=== PATIENT | female | born 1980 | race Caucasian/White ===

== ENCOUNTER 2019-03-07 02:52 | Emergency (ER) | payer OTHER ==
[~2019-03-07] VITALS: Ht 170.2 cm; Wt 70.3 kg
[2019-03-07] MEDS ORDERED: IV NS 0.9% 1,000 ML BAG IV ONE (03:30)
[2019-03-07 03:32] LABS: CALCIUM, SERUM 8.9 mg/dL (8.5-10.1); CREATININE 0.7 mg/dL (0.6-1.3); POTASSIUM 3.6 mmol/L (3.5-5.1)
[2019-03-07 03:34] LABS: BASOPHILS # (AUTO) 0.1 /CMM (0.0-0.2); BASOPHILS % (AUTO) 1.4 % (0.0-2.0); EOSINOPHILS % (AUTO) 3.2 % (0.0-6.0); HEMATOCRIT 37 % (33-45); HEMOGLOBIN 12.5 g/dL (11.5-14.8); LYMPHOCYTES # (AUTO) 3.5 /CMM (0.8-4.8); LYMPHOCYTES % (AUTO) 42.8 % (20.0-44.0); MEAN CORPUSCULAR HGB CONC 34 g/dl (31.0-36.0); MEAN CORPUSCULAR VOLUME 94 fL (82-100); MONOCYTES # (AUTO) 0.8 /CMM (0.1-1.30); MONOCYTES % (AUTO) 10.1 % (2.0-12.0); NEUTROPHILS # (AUTO) 3.5 /CMM (1.8-8.9); NEUTROPHILS % (AUTO) 42.5 % (43.0-81.0); PLATELET COUNT (AUTO) 341 /CMM (150-450); RED BLOOD CELL COUNT(AUTO) 3.89 MIL/uL (4.0-5.2); WHITE BLOOD COUNT (AUTO) 8.2 K/uL (4.3-11.0)
[2019-03-07 03:38] LABS: APPEARANCE,URINE Clear (CLEAR); BILIRUBIN,URINE Negative (NEGATIVE); BLOOD, URINE Negative Ery/uL (NEGATIVE); COLOR,URINE Yellow (YELLOW); KETONES,URINE Negative (NEGATIVE); LEUKOCYTE ESTERASE ,URINE Negative (NEGATIVE); NITRITE, URINE Negative (NEGATIVE); PROTEIN,URINE Negative (NEGATIVE); UGLUCOSE Negative (NEGATIVE); UROBILINOGEN,URINE 0.2 EU/dL (0.2)
[2019-03-07 03:39] LABS: ALBUMIN 3.3 g/dL (3.4-5.0); BILIRUBIN,DIRECT 0.1 mg/dL (0.0-0.2); BILIRUBIN,TOTAL 0.1 mg/dL (0.2-1.0); TOTAL PROTEIN, SERUM 7.1 g/dL (6.4-8.2)
[2019-03-07 03:40] LABS: SALICYLATE 1.4 mg/dL (2.8-20.0)
--- NOTE | 2019-03-07 04:09 | NUR ---
[facility]ANT FROM [place]. TO ER BED 12. INTOXICATED. NO RESP DISTRESS NOTED. BROUGHT IN D/T FOUND WITH ALCOHOL AND INGESTED PILLS PER NEIGHBOR. PT ADMIT TO TAKING GABAPENTIN OF UNKNOWN AMOUNT. PT STATES THAT HE DID IT IN ATTEMPT TO HURT HIMSELF. ACCORDING TO PT SHE IS DEPPRESSED. EMS REPORTS THAT PT HAS A COURT TOMORROW. MD AT BEDSIDE FOR EVAL. ORDERS RECEIVED, NOTED AND CARRIED OUT. IV LINE OBTAINED ON R AC 20G. BLOOD DRAWN AND GIVEN TO LABTECH AT BEDSIDE. URINE COLLECTED VIA STRAIGHT CATH BY CHELA YOUNGBLOOD AND SENT OT LAB.
--- NOTE | 2019-03-07 04:17 | NUR ---
PT STRIPPED OFF HER CLOTHES AND PLACED IN GOWN. SITTER AT BEDSIDE FOR 1:1.
--- NOTE | 2019-03-07 06:39 | NUR ---
PT IN BED SLEEPING. BREATHING EVEN AND UNLABORED. SITTER AT BEDSIDE
--- NOTE | 2019-03-07 07:22 | NUR ---
REPORT RECEIVED FROM KARLA YORK. RESTING QUIETLY, EASILY AROUSABLE, WITH EVANGELIST JOHNSON AT BEDSIDE.
--- NOTE | 2019-03-07 10:04 | NUR ---
resting quietly, asleep but easily arousable. placed order for alcohol level recheck at 1100 per MD verbal order.
--- NOTE | 2019-03-07 12:15 | NUR ---
PT DENIES ALL SI OR HI. PT ASKING TO GO HOME. EXPLAINED PLAN OF CARE IN DETAIL, PT CONSENTS TO PLAN OF CARE.
--- NOTE | 2019-03-07 12:38 | NUR ---
CALLED ART SENIOR UI SOFTWARE ENGINEER FOR PT EVAL.
--- NOTE | 2019-03-07 12:50 | NUR ---
[facility], REQUESTED DR FRANCIS ROGER
--- NOTE | 2019-03-07 13:02 | NUR ---
ART CLOTH STRETCHER AT BEDSIDE FOR EVAL.
--- NOTE | 2019-03-07 13:19 | NUR ---
CLINICALS PROVIDED TO MICHELLE MONTESINOSSTRINGING MACHINE OPERATOR AT [facility]. ART AT BEDSIDE
--- NOTE | 2019-03-07 14:34 | NUR ---
IV removed. Catheter intact and site benign. Pressure and 4x4 applied to site. No bleeding noted.
[2019-03-07 14:43] VITALS: BP 114/66
--- NOTE | 2019-03-07 14:44 | NUR ---
Patient discharged to home in stable condition. Written and verbal after care instructions given. Patient verbalizes understanding of instruction. AMBULATORY STEADY GAIT. PT SAYS SHE WILL TRY TO SEE HER THERAPIST IN THE MORNING. PROVIDED WITH WORK NOTE. ALL BELONGINGS RETURNED TO PT.
--- NOTE | 2019-03-07 14:47 | NUR ---
CONTINUES TO DENY SI
== END 2019-03-07 14:48 | disposition home or self-care (01) ==
LOC: ER 02:52
DX: F19.10 Other psychoactive substance abuse, uncomplicated (principal); R45.851 Suicidal ideations; F10.10 Alcohol abuse, uncomplicated; R00.0 Tachycardia, unspecified; F32.9 Major depressive disorder, single episode, unspecified; F12.10 Cannabis abuse, uncomplicated; Y90.8 Blood alcohol level of 240 mg/100 ml or more; Z90.89 Acquired absence of other organs
CPT/HCPCS: 36415; 80048; 80076; 80305; 80307 ×2; 80329; 81001; 82962; 84703; 85025; 93005; 99284; G0480; J7030; 81000-TC

== ENCOUNTER 2019-03-13 22:50 | Emergency (ER) | payer OTHER ==
[~2019-03-13] VITALS: Ht 157.5 cm; Wt 67.6 kg
[2019-03-13] MEDS ORDERED: ACETAMINOPHEN ES 500 MG TABLET PO ONE (23:30)
[2019-03-13] MEDS ORDERED: IV NS 0.9% 1,000 ML BAG IV ONE (23:30)
[2019-03-13] MEDS ORDERED: ACETAMINOPHEN ES 500 MG TABLET ONE ×2 (23:30→23:44)
[2019-03-13 23:36] LABS: BASOPHILS # (AUTO) 0.1 /CMM (0.0-0.2); BASOPHILS % (AUTO) 0.9 % (0.0-2.0); HEMATOCRIT 41 % (33-45); HEMOGLOBIN 13.9 g/dL (11.5-14.8); LYMPHOCYTES # (AUTO) 3.4 /CMM (0.8-4.8); LYMPHOCYTES % (AUTO) 32.5 % (20.0-44.0); MEAN CORPUSCULAR HGB CONC 34 g/dl (31.0-36.0); MEAN CORPUSCULAR VOLUME 92 fL (82-100); MONOCYTES # (AUTO) 0.6 /CMM (0.1-1.30); MONOCYTES % (AUTO) 5.8 % (2.0-12.0); NEUTROPHILS # (AUTO) 6.3 /CMM (1.8-8.9); NEUTROPHILS % (AUTO) 59.8 % (43.0-81.0); PLATELET COUNT (AUTO) 483 /CMM (150-450); RED BLOOD CELL COUNT(AUTO) 4.45 MIL/uL (4.0-5.2); WHITE BLOOD COUNT (AUTO) 10.5 K/uL (4.3-11.0)
[2019-03-13 23:48] LABS: CALCIUM, SERUM 8.4 mg/dL (8.5-10.1); CREATININE 0.6 mg/dL (0.6-1.3); POTASSIUM 3.7 mmol/L (3.5-5.1)
--- NOTE | 2019-03-13 23:53 | NUR ---
[id number] & [employer] OFFICERS FOR SI, NO PLAN @ THIS MOMENT, DEPRESSED +ETOH -HI. C/O ABD PAIN -NAUSEA. PT AAOX3, VSS. RR EVEN & UNLABORED. CALM & COOPERATIVE. DENIES CP, SOB, DIZZINESS, N/V @ THIS TIME. SEEN & EVAL'D BY GARFIELD VELAZQUEZ. WILL CONT TO MONITOR.
[2019-03-13 23:59] LABS: ALBUMIN 3.3 g/dL (3.4-5.0); BILIRUBIN,DIRECT 0.1 mg/dL (0.0-0.2); BILIRUBIN,TOTAL 0.3 mg/dL (0.2-1.0); TOTAL PROTEIN, SERUM 7.3 g/dL (6.4-8.2)
[2019-03-14 00:04] LABS: SALICYLATE 1.2 mg/dL (2.8-20.0)
[2019-03-14 00:06] LABS: APPEARANCE,URINE CLEAR (CLEAR); BILIRUBIN,URINE NEGATIVE (NEGATIVE); BLOOD, URINE 2+ Ery/uL (NEGATIVE); COLOR,URINE YELLOW (YELLOW); KETONES,URINE NEGATIVE (NEGATIVE); LEUKOCYTE ESTERASE ,URINE NEGATIVE (NEGATIVE); NITRITE, URINE NEGATIVE (NEGATIVE); PH,URINE 6.5 (5.0-8.0); PROTEIN,URINE NEGATIVE (NEGATIVE); UGLUCOSE NEGATIVE (NEGATIVE); UROBILINOGEN,URINE 0.2 EU/dL (0.2)
[2019-03-14 00:15] LABS: BACTERIA,URINE None seen /HPF (None Seen); MUCUS,URINE Few /LPF (None Seen); RBC,URINE 0-2 /HPF (0-2); SQUAMOUS EPITHELIAL CELL,UR Moderate /HPF (None Seen)
--- NOTE | 2019-03-14 02:16 | NUR ---
DEONNA EPRP CALLED.
--- NOTE | 2019-03-14 02:55 | NUR ---
GLASS TUBE BENDER AT BEDSIDE FOR REDRAW
--- NOTE | 2019-03-14 07:49 | NUR ---
CALLED [facility] [phone] ESTHER WILL HAVE CALL US BACK.
--- NOTE | 2019-03-14 08:33 | NUR ---
RECEIVED VERBAL ORDER FROM DR YING OF ZOFRAN 4MG IV AND TYLENOL 1000MG PO. CARRIED OUT
[2019-03-14] MEDS ORDERED: ONDANSETRON HCL/PF 4 MG/2 ML VIAL ONE (08:34)
[2019-03-14] MEDS ORDERED: ACETAMINOPHEN ES 500 MG TABLET ONE (08:35)
--- NOTE | 2019-03-14 10:07 | NUR ---
SPOKE TO [facility] ([facility]),
[2019-03-14] MEDS ORDERED: ACETAMINOPHEN ES 500 MG TABLET PO ONE (10:30)
--- NOTE | 2019-03-14 10:55 | NUR ---
PT GOING TO [facility] [address] [place] ACCEPTING # FOR REPORT- [phone]
--- NOTE | 2019-03-14 11:04 | NUR ---
REPORT GIVEN TO ELEANOR OF [facility] 3
[2019-03-14] MEDS ORDERED: BENAZEPRIL HCL 10 MG TABLET ONE (12:13)
[2019-03-14] MEDS ORDERED: BENAZEPRIL HCL 10 MG TABLET PO ONE (12:30)
[2019-03-14] MEDS ORDERED: ONDANSETRON HCL/PF 4 MG/2 ML VIAL IVP ONE (12:30)
--- NOTE | 2019-03-14 12:31 | NUR ---
Patient picked up by [facility] [address] in stable condition. Patient will be transferred to [facility] Unit. Written and verbal after care instructions given. Patient verbalizes understanding of instruction.
[2019-03-14 12:33] VITALS: BP 140/85
== END 2019-03-14 12:33 | disposition short-term general hospital (02) ==
LOC: ER 22:53
DX: R45.851 Suicidal ideations (principal); F10.229 Alcohol dependence with intoxication, unspecified; F32.9 Major depressive disorder, single episode, unspecified; Y90.6 Blood alcohol level of 120-199 mg/100 ml; Z90.89 Acquired absence of other organs
CPT/HCPCS: 36415 ×2; 80048; 80076; 80305; 80307 ×3; 80329; 81001; 84703; 85025; 96374; 99285; G0480; J2405; J7030; 81000-TC

== ENCOUNTER 2019-03-18 03:55 | Emergency (ER) | payer OTHER ==
[~2019-03-18] VITALS: Ht 160 cm; Wt 68.0 kg
--- NOTE | 2019-03-18 04:00 | NUR ---
GUY MORA REPORTING OD ON SEROQUEL, NERONTIN AND WELBUTRIN FOR SUICIDE. PT APEAR VERY ANXIOUS AND UNABLE TO STAY STILL . PLACED ON A MONITOR ,
--- NOTE | 2019-03-18 04:22 | NUR ---
URINE AND BLOOD COLLECTED
[2019-03-18] MEDS ORDERED: IV NS 0.9% 1,000 ML BAG IV ONE (04:30)
[2019-03-18 04:32] LABS: BASOPHILS # (AUTO) 0.2 /CMM (0.0-0.2); BASOPHILS % (AUTO) 2.6 % (0.0-2.0); EOSINOPHILS % (AUTO) 1.7 % (0.0-6.0); HEMATOCRIT 36 % (33-45); HEMOGLOBIN 12.4 g/dL (11.5-14.8); LYMPHOCYTES # (AUTO) 3.4 /CMM (0.8-4.8); LYMPHOCYTES % (AUTO) 38.1 % (20.0-44.0); MEAN CORPUSCULAR HGB CONC 34 g/dl (31.0-36.0); MEAN CORPUSCULAR VOLUME 93 fL (82-100); MONOCYTES # (AUTO) 0.6 /CMM (0.1-1.30); MONOCYTES % (AUTO) 6.7 % (2.0-12.0); NEUTROPHILS # (AUTO) 4.5 /CMM (1.8-8.9); NEUTROPHILS % (AUTO) 50.9 % (43.0-81.0); PLATELET COUNT (AUTO) 340 /CMM (150-450); RED BLOOD CELL COUNT(AUTO) 3.89 MIL/uL (4.0-5.2); WHITE BLOOD COUNT (AUTO) 8.9 K/uL (4.3-11.0)
[2019-03-18 04:37] LABS: CALCIUM, SERUM 7.9 mg/dL (8.5-10.1); CREATININE 0.7 mg/dL (0.6-1.3); POTASSIUM 3.8 mmol/L (3.5-5.1)
[2019-03-18 04:42] LABS: ALBUMIN 3.2 g/dL (3.4-5.0); BILIRUBIN,DIRECT 0.1 mg/dL (0.0-0.2); BILIRUBIN,TOTAL 0.1 mg/dL (0.2-1.0)
[2019-03-18 04:46] LABS: APPEARANCE,URINE CLEAR (CLEAR); BILIRUBIN,URINE NEGATIVE (NEGATIVE); BLOOD, URINE NEGATIVE Ery/uL (NEGATIVE); COLOR,URINE YELLOW (YELLOW); KETONES,URINE NEGATIVE (NEGATIVE); LEUKOCYTE ESTERASE ,URINE NEGATIVE (NEGATIVE); NITRITE, URINE NEGATIVE (NEGATIVE); PROTEIN,URINE NEGATIVE (NEGATIVE); UGLUCOSE NEGATIVE (NEGATIVE); UROBILINOGEN,URINE 0.2 EU/dL (0.2)
[2019-03-18 04:50] LABS: SALICYLATE 1.3 mg/dL (2.8-20.0)
--- NOTE | 2019-03-18 05:27 | NUR ---
PAGED DEONNA PALENCIAP
--- NOTE | 2019-03-18 06:33 | NUR ---
Pt accepted to [facility]. # for report [phone]. Accepted [address] Dr Felipe . ETA [id number]
--- NOTE | 2019-03-18 06:51 | NUR ---
REPORT GIVEN TO LOGAN AT [facility].
[2019-03-18 07:08] VITALS: BP 135/94
--- NOTE | 2019-03-18 07:34 | NUR ---
report given to Gwen YORK from [facility]
--- NOTE | 2019-03-18 07:40 | NUR ---
PT WAS PICKED UP BY [facility] VIA GURNEY UNDER ACLS. ALL BELONGINGS INCLUDING EMPTY PILL BOTTLES WERE GIVEN TO THE security professionals.
== END 2019-03-18 07:44 | disposition short-term general hospital (02) ==
LOC: ER 03:55
DX: T42.6X2A Poisoning by other antiepileptic and sedative-hypnotic drugs, intentional self-harm, initial encounter (principal); R94.31 Abnormal electrocardiogram [ECG] [EKG]; Z90.89 Acquired absence of other organs; Y92.89 Other specified places as the place of occurrence of the external cause
CPT/HCPCS: 36415; 80048; 80076; 80305; 80307; 80329; 81001; 84703; 85025; 93005; 99285; G0480; J7030; 81000-TC

== ENCOUNTER 2019-07-17 14:32 | Emergency (ER) | payer OTHER ==
[~2019-07-17] VITALS: Ht 170.2 cm; Wt 74.8 kg
--- NOTE | 2019-07-17 14:50 | NUR ---
BIB ra 39 YEAR OLD FEMALE from restaurant s/p overdose on unknown substance. ALERT AND ORIENTED X2. BREATHING EVEN AND UNLABORED WITH NO DISTRESS NOTED. SKIN INTACT. WAITING TO BE SEEN BY
[2019-07-17 14:54] LABS: BASOPHILS # (AUTO) 0.1 /CMM (0.0-0.2); EOSINOPHILS % (AUTO) 1.4 % (0.0-6.0); HEMATOCRIT 40 % (33-45); HEMOGLOBIN 13.6 g/dL (11.5-14.8); LYMPHOCYTES # (AUTO) 3.7 /CMM (0.8-4.8); LYMPHOCYTES % (AUTO) 31.8 % (20.0-44.0); MEAN CORPUSCULAR HGB CONC 34 g/dl (31.0-36.0); MEAN CORPUSCULAR VOLUME 92 fL (82-100); MONOCYTES # (AUTO) 0.5 /CMM (0.1-1.30); MONOCYTES % (AUTO) 4.6 % (2.0-12.0); NEUTROPHILS % (AUTO) 61.2 % (43.0-81.0); PLATELET COUNT (AUTO) 383 /CMM (150-450); WHITE BLOOD COUNT (AUTO) 11.5 K/uL (4.3-11.0)
[2019-07-17] MEDS ORDERED: IV NS 0.9% 1,000 ML BAG IV ONE (15:00)
[2019-07-17 15:10] LABS: CALCIUM, SERUM 9.1 mg/dL (8.5-10.1); CREATININE 0.8 mg/dL (0.6-1.3); POTASSIUM 3.6 mmol/L (3.5-5.1)
[2019-07-17 15:23] LABS: ALBUMIN 3.7 g/dL (3.4-5.0); BILIRUBIN,DIRECT 0.1 mg/dL (0.0-0.2); BILIRUBIN,TOTAL 0.3 mg/dL (0.2-1.0); SALICYLATE 1.4 mg/dL (2.8-20.0); TOTAL PROTEIN, SERUM 7.5 g/dL (6.4-8.2)
--- NOTE | 2019-07-17 16:53 | NUR ---
PT ASLEEP WITH NO DISTRESS NOTED. WILL CONTINUE TO MONITOR
--- NOTE | 2019-07-17 18:37 | NUR ---
PT PULLED OUT HER IV SITE. CATH INTACT AND 4X4 PLACED ON DISLODGED SITE.
--- NOTE | 2019-07-17 19:41 | NUR ---
[facility] [phone]
[2019-07-17 20:55] LABS: APPEARANCE,URINE CLEAR (CLEAR); BILIRUBIN,URINE NEGATIVE (NEGATIVE); BLOOD, URINE NEGATIVE Ery/uL (NEGATIVE); COLOR,URINE YELLOW (YELLOW); KETONES,URINE NEGATIVE (NEGATIVE); LEUKOCYTE ESTERASE ,URINE NEGATIVE (NEGATIVE); NITRITE, URINE NEGATIVE (NEGATIVE); PROTEIN,URINE NEGATIVE (NEGATIVE); UGLUCOSE NEGATIVE (NEGATIVE); UROBILINOGEN,URINE 0.2 EU/dL (0.2)
--- NOTE | 2019-07-17 21:01 | NUR ---
PT IS AWAKE. PROVIDED WITH WATER AND TOLERATING WELL. PT AMBULATORY W/O ASSIST ON STEADY GAIT
--- NOTE | 2019-07-17 21:40 | NUR ---
CALLED [facility]. AWAITING CALL BACK FOR TO
--- NOTE | 2019-07-17 21:55 | NUR ---
DR. ESTES CALLED BACK FROM [facility] FOR DR FRANCIS AVITIA
--- NOTE | 2019-07-17 22:29 | NUR ---
Patient discharged to home in stable condition. Written and verbal after care instructions given. Patient verbalizes understanding of instruction. Pt ambulatory with a steady gait
[2019-07-17 22:31] VITALS: BP 121/85
== END 2019-07-17 22:31 | disposition home or self-care (01) ==
LOC: ER 14:34
DX: R41.82 Altered mental status, unspecified (principal); F10.129 Alcohol abuse with intoxication, unspecified; Y90.8 Blood alcohol level of 240 mg/100 ml or more; Z90.89 Acquired absence of other organs
CPT/HCPCS: 36415; 80048; 80076; 80305; 80307 ×2; 80329; 81001; 84702; 85025; 96360; 99283; G0480; J7030; 81000-TC

== ENCOUNTER 2019-09-28 13:53 | Emergency (ER) | payer OTHER ==
[~2019-09-28] VITALS: Ht 170.2 cm; Wt 74.8 kg
--- NOTE | 2019-09-28 13:54 | NUR ---
[id number] and lapd, from home, etoh, took 3 tabs of norco, pt awake, alert, not following directions, pt to bed 12, placed on monitor, vss, nad noted, pending md menchaca
[2019-09-28] MEDS ORDERED: LORAZEPAM 1 MG TABLET ONE (14:10)
[2019-09-28] MEDS ORDERED: LORAZEPAM 1 MG TABLET PO ONE (14:30)
--- NOTE | 2019-09-28 14:40 | NUR ---
per dr zendejas give pt haldol; pt uncooperative with staff.
[2019-09-28] MEDS ORDERED: HALOPERIDOL LACTATE INJ 5 MG/ML VIAL ONE (14:44)
[2019-09-28] MEDS ORDERED: HALOPERIDOL LACTATE INJ 5 MG/ML VIAL IM ONE (15:00)
[2019-09-28 15:38] LABS: BASOPHILS # (AUTO) 0.2 /CMM (0.0-0.2); BASOPHILS % (AUTO) 2.4 % (0.0-2.0); EOSINOPHILS % (AUTO) 0.2 % (0.0-6.0); HEMATOCRIT 40 % (33-45); HEMOGLOBIN 13.5 g/dL (11.5-14.8); LYMPHOCYTES % (AUTO) 34.5 % (20.0-44.0); MEAN CORPUSCULAR HGB CONC 33 g/dl (31.0-36.0); MEAN CORPUSCULAR VOLUME 89 fL (82-100); MONOCYTES # (AUTO) 0.3 /CMM (0.1-1.30); MONOCYTES % (AUTO) 3.5 % (2.0-12.0); NEUTROPHILS # (AUTO) 5.2 /CMM (1.8-8.9); NEUTROPHILS % (AUTO) 59.4 % (43.0-81.0); PLATELET COUNT (AUTO) 365 /CMM (150-450); RED BLOOD CELL COUNT(AUTO) 4.54 MIL/uL (4.0-5.2); WHITE BLOOD COUNT (AUTO) 8.8 K/uL (4.3-11.0)
[2019-09-28 15:45] LABS: CALCIUM, SERUM 8.8 mg/dL (8.5-10.1)
[2019-09-28 15:48] LABS: APPEARANCE,URINE CLEAR (CLEAR); BILIRUBIN,URINE NEGATIVE (NEGATIVE); BLOOD, URINE MODERATE Ery/uL (NEGATIVE); COLOR,URINE YELLOW (YELLOW); KETONES,URINE 15 (NEGATIVE); LEUKOCYTE ESTERASE ,URINE NEGATIVE (NEGATIVE); NITRITE, URINE NEGATIVE (NEGATIVE); PROTEIN,URINE 30 mg/dl (NEGATIVE); UGLUCOSE NEGATIVE (NEGATIVE)
[2019-09-28 15:52] LABS: ALBUMIN 3.6 g/dL (3.4-5.0); BILIRUBIN,DIRECT 0.3 mg/dL (0.0-0.2); BILIRUBIN,TOTAL 0.9 mg/dL (0.2-1.0); TOTAL PROTEIN, SERUM 7.4 g/dL (6.4-8.2)
--- NOTE | 2019-09-28 16:00 | NUR ---
urine collected and sent to [facility]
[2019-09-28 16:02] LABS: BACTERIA,URINE 1+ /HPF (None Seen)
[2019-09-28 16:03] LABS: MUCUS,URINE Many /LPF (None Seen)
--- NOTE | 2019-09-28 16:49 | NUR ---
HYDROCODONE 10-325 GAVAPENTIN 600 ONE A DAY SERAQUL ONE IN AM AND ONE AT NIGHT. NELTACSONE ONE A DAY. ACAMPROSATE 300MG TWO TABS TID.
[2019-09-28 19:06] VITALS: BP 115/80
--- NOTE | 2019-09-28 21:30 | NUR ---
Patient discharged to home in stable condition. Written and verbal after care instructions given. Patient verbalizes understanding of instruction. IV removed. Catheter intact and site benign. Pressure and 4x4 applied to site. No bleeding noted.
== END 2019-09-28 21:56 | disposition home or self-care (01) ==
LOC: ER 13:56
DX: R45.851 Suicidal ideations (principal); T51.92XA Toxic effect of unspecified alcohol, intentional self-harm, initial encounter; Y92.89 Other specified places as the place of occurrence of the external cause; Z90.89 Acquired absence of other organs
CPT/HCPCS: 36415; 80048; 80076; 80305; 80307; 80329; 81001; 82962; 85025; 96372; 99283; G0480; J1630; 81000-TC